=== PATIENT | male | born 1960 | race Caucasian/White ===

== ENCOUNTER 2017-01-24 11:30 | Emergency (ER) | payer BC ==
[2017-01-24 11:45] VITALS: BP 140/89; PULSE 82; TEMP 97.9; BMI 29.7
--- NOTE | 2017-01-24 11:45 | PDOC ---
History of Present Illness - General Chief Complaint: Injury Stated Complaint: RIGHT WRIST PAIN Time Seen by Provider: 01/24/17 11:40 History Source: Patient Exam Limitations: No Limitations - History of Present Illness Initial Comments: 01/24/17 11:41 The patient is a 56-year-old male, with no significant past medical history, who presents to the emergency department with right wrist pain. He sustained an injury on Tuesday night, while playing softball, when he fell to the right, and landed on his right wrist, flexing it. Since that time she has had pain in the right wrist. It is mild. It is exacerbated by palpation, flexion/extension and supination/pronation. He denies distal weakness or paresthesias. He denies pain or injury elsewhere. Past History - Past Medical History Allergies/Adverse Reactions: Allergies Allergy/AdvReac Type Severity Reaction Status Date / Time No Known Allergies Allergy Verified 01/24/17 11:39 Home Medications: Ambulatory Orders NK [No Known Home Medication] 01/24/17 Review of Systems - Review of Systems Comments:: 01/24/17 11:42 CONSTITUTIONAL: Absent: fever, chills, fatigue EYES: Absent: visual changes ENT: Absent: ear pain, sore throat CARDIOVASCULAR: Absent: chest pain, palpitations, loss of consciousness RESPIRATORY: Absent: cough, SOB GI: Absent: abdominal pain, nausea, vomiting, constipation, diarrhea GENITOURINARY: Absent: dysuria, frequency, hematuria MUSKULOSKELETAL: Present: See history of present illness Absent: back pain SKIN: Absent: rash NEURO: Absent: headache, dizziness *Physical Exam - Physical Exam Comments: 01/24/17 11:42 GENERAL: Well-appearing, well-nourished. No apparent distress. HEENT: Normocephalic, atraumatic. PERRL, EOM intact. CARDIOVASCULAR: Normal S1, S2. Regular rate and rhythm. PULMONARY: Clear to auscultation bilaterally. ABDOMEN: Soft, non-distended, non-tender. EXTREMITIES: There is minimal tenderness to palpation over the distal ulna, in the area of the ulnar styloid. There is reproducible pain with forced supination/pronation as well as forced flexion/extension. Most of the tenderness seems to be soft tissue rather than bony. There is no pain at the wrist with aggressive axial loading of the joint. Normal ROM in all four extremities. No gross deformities. SKIN: Warm, dry. No rash NEUROLOGICAL: No focal neurological deficits. ED Treatment Course - RADIOLOGY Radiology Studies Ordered: Category Date Time Status WRIST- RIGHT [RAD] Stat Radiology 01/24/17 11:40 Ordered Medical Decision Making - Medical Decision Making 01/24/17 11:43 The patient is well-appearing and in no acute distress Will obtain plain x-ray of the wrist to rule out fracture 01/24/17 11:55 X-ray emergency Department interpretation: No evidence of fracture or dislocation Clinical impression: Wrist sprain I discussed the physical exam findings, ancillary test results and final diagnoses with the patient. I answered all of the patient's questions. The patient was satisfied with the care received and felt comfortable with the discharge plan and treatment plan. The patient will call their primary care physician within 24 hours to arrange follow-up and will return to the Emergency Department with any new, persistent or worsening symptoms. *DC/Admit/Observation/Transfer Diagnosis at time of Disposition: Wrist sprain - Discharge Dispostion Disposition: HOME Condition at time of disposition: Good - Referrals Referrals: Won Elena MD [Staff Physician] - Edy Santiago MD [Primary Care Provider] - 3 days - Patient Instructions Printed Discharge Instructions: DI for Wrist Sprain Additional Instructions: Return to the emergency department immediately with ANY new, persistent or worsening symptoms. You MUST call and follow up with your doctor tomorrow. Please make sure your doctor reviews the results of your emergency department evaluation.
== END 2017-01-24 12:03 | disposition home or self-care (01) ==
LOC: FER 11:30
DX: S63.501A Unspecified sprain of right wrist, initial encounter (principal); W18.39XA Other fall on same level, initial encounter; Y93.64 Activity, baseball; Y92.320 Baseball field as the place of occurrence of the external cause
CPT/HCPCS: 73110-TC-RT; 99281-25

== ENCOUNTER 2021-02-05 05:50 | Day surgery (SDC) | payer BC ==
[2021-01-30 12:06] VITALS: BMI 29.0
[2021-02-05] MEDS ORDERED: BUPIVACAINE HCL/PF 2.5 MG/ML - 30 ML VIAL IJ ONE (07:07)
[2021-02-05] MEDS ORDERED: PROPOFOL 20 ML ONE (07:20)
[2021-02-05] MEDS ORDERED: MIDAZOLAM HCL 2 MG/2 ML SINGLE DOSE VIAL ONE (07:21)
[2021-02-05] MEDS ORDERED: SUCCINYLCHOLINE CHLORIDE 200 MG/10 ML SYRINGE ONE (07:21)
[2021-02-05] MEDS ORDERED: ceFAZolin SODIUM 1 GM VIAL ONE (07:51)
[2021-02-05] MEDS ORDERED: DEXAMETHASONE SOD PHOSPHATE 4 MG/1 ML VIAL ONE (07:55)
[2021-02-05] MEDS ORDERED: ONDANSETRON 4 MG/2 ML VIAL ONE ×2 (07:55→08:25)
[2021-02-05] MEDS ORDERED: oxyCODONE HCL 5 MG TABLET PO PRN (08:37)
[2021-02-05] MEDS ORDERED: ONDANSETRON 4 MG/2 ML VIAL IVPUSH PRN (08:37)
[2021-02-05] MEDS ORDERED: LACTATED RINGERS SOLUTION 1,000 ML IV SCH (08:45)
[2021-02-05] MEDS ORDERED: oxyCODONE HCL 5 MG TABLET ONE (09:36)
[2021-02-05 10:11] VITALS: TEMP 97.2
[2021-02-05 10:42] VITALS: BP 134/73; PULSE 72
== END 2021-02-05 10:25 | disposition home or self-care (01) ==
LOC: FASU 05:50
PROVIDERS: ATTEND Orthopaedic Surgery Sports Medicine
PROC: 0SBC4ZZ Excision of Right Knee Joint, Percutaneous Endoscopic Approach (ICD-10-PCS; 2021-02-05)
PROC: 0SBC4ZZ Excision of Right Knee Joint, Percutaneous Endoscopic Approach (ICD-10-PCS; principal; 2021-02-05 08:04)
DX: S83.241A Other tear of medial meniscus, current injury, right knee, initial encounter (principal); S83.281A Other tear of lateral meniscus, current injury, right knee, initial encounter; X58.XXXA Exposure to other specified factors, initial encounter; Y93.9 Activity, unspecified; Y92.9 Unspecified place or not applicable
CPT/HCPCS: 94760

== ENCOUNTER 2023-07-13 09:50 | Day surgery (SDC) | payer BC ==
[2023-07-08 10:12] VITALS: BMI 29.7
[2023-07-13] MEDS: PHENYLEPHRINE 2.5% OPTHALMIC DROP 2ML BOTTLE ONE ×3 (10:15→10:25)
[2023-07-13] MEDS: TROPICAMIDE 1% OPHTH SOLN 15 ML BOTTLE ONE ×3 (10:15→10:25)
[2023-07-13] MEDS: CYCLOPENTOLATE 2% OPHTH SOLN 2 ML BOTTLE ONE ×3 (10:15→10:25)
[2023-07-13] MEDS: CIPROFLOXACIN HCL 0.3% OPHTH 2.5ML BOTTLE ONE ×3 (10:15→10:25)
[2023-07-13] MEDS ORDERED: LIDOCAINE 1% P/F 10 MG/ML VIAL ONE (10:27)
[2023-07-13] MEDS ORDERED: TETRACAINE 0.5% OPHTH SOLN 2 ML BOTTLE ONE (10:27)
[2023-07-13] MEDS ORDERED: BSS (NA/CA/MG/K) BALANCED SALT SOLUTION OPHTH SOLN 15 ML BOTTLE ONE (10:27)
[2023-07-13] MEDS ORDERED: NEO/POLYMYX B SULF/DEXAMETH OPHTHALMIC 5ML BOTTLE ONE (10:28)
[2023-07-13] MEDS ORDERED: CARBACHOL 0.01% INTRA-OCULAR 1.5 ML VIAL ONE (10:28)
[2023-07-13] MEDS ORDERED: MIDAZOLAM HCL 2 MG/2 ML SINGLE DOSE VIAL ONE ×2 (11:25→12:15)
[2023-07-13 14:10] VITALS: TEMP 98
[2023-07-13 14:13] VITALS: RESP 17
[2023-07-13 14:18] VITALS: BP 132/78; PULSE 78
== END 2023-07-13 12:45 | disposition home or self-care (01) ==
LOC: FASU 09:50
PROVIDERS: ATTEND Ophthalmology
PROC: 08RJ3JZ Replacement of Right Lens with Synthetic Substitute, Percutaneous Approach (ICD-10-PCS; principal; 2023-07-13 11:49)
DX: H26.8 Other specified cataract (principal)
CPT/HCPCS: 66984; V2632

== ENCOUNTER 2025-01-09 06:42 | Day surgery (SDC) | payer BC ==
[2025-01-03 14:41] VITALS: BMI 29.0
[2025-01-09 07:18] VITALS: RESP 18
[2025-01-09] MEDS: TROPICAMIDE 1% 3 ML EYE DROPS ONE (07:20)
[2025-01-09] MEDS: CIPROFLOXACIN 0.3% EYE DROPS 5 ML BOTTLE ONE (07:20)
[2025-01-09] MEDS ORDERED: LIDOCAINE 1% P/F 10 MG/ML VIAL ONE (07:20)
[2025-01-09] MEDS: CYCLOPENTOLATE 2% OPHTH SOLN 2 ML BOTTLE ONE (07:20)
[2025-01-09] MEDS: PHENYLEPHRINE 2.5% OPTHALMIC DROP 2ML BOTTLE ONE (07:20)
[2025-01-09] MEDS ORDERED: EPINEPHrine 1:1000 P/F - 1 MG/ML AMP ONE (07:20)
[2025-01-09] MEDS ORDERED: BSS (NA/CA/MG/K) BALANCED SALT SOLUTION OPHTH SOLN 15 ML BOTTLE ONE (07:21)
[2025-01-09] MEDS ORDERED: TETRACAINE 0.5% OPHTH SOLN 2 ML BOTTLE ONE (07:21)
[2025-01-09] MEDS ORDERED: NEO/POLYMYX B SULF/DEXAMETH OPHTHALMIC 5ML BOTTLE ONE (07:22)
[2025-01-09] MEDS ORDERED: CARBACHOL 0.01% INTRA-OCULAR 1.5 ML VIAL ONE (07:22)
[2025-01-09] MEDS ORDERED: MIDAZOLAM HCL 2 MG/2 ML SINGLE DOSE VIAL ONE ×2 (08:39→09:06)
[2025-01-09 09:27] VITALS: TEMP 97
[2025-01-09 10:06] VITALS: BP 128/76; PULSE 68
== END 2025-01-09 10:00 | disposition home or self-care (01) ==
LOC: FASU 06:42
PROVIDERS: ATTEND Ophthalmology
PROC: 08RK3JZ Replacement of Left Lens with Synthetic Substitute, Percutaneous Approach (ICD-10-PCS; principal; 2025-01-09 09:09)
DX: H26.8 Other specified cataract (principal)
CPT/HCPCS: 66984; V2632